=== PATIENT | male | born 2005 | race Hispanic/Latino ===

== ENCOUNTER 2025-08-02 16:27 | Emergency (ER) | payer OTHER ==
[~2025-08-02] VITALS: Ht 172.7 cm; Wt 104.3 kg
[2025-08-02] MEDS ORDERED: DIPH50CA38 PO (16:50)
--- NOTE | 2025-08-02 16:51 | ERN ---
ED Note History of Present Illness Stated Complaint: BEE STING Chief Complaint: Insect Bite Time Seen by MD: 16:30 Time Seen by Midlevel: 16:30 Dictation: The patient is a 19-year-old male with no past medical history who presents to the emergency department with complaints of bee sting to the left lower leg onset prior to arrival. Patient denies any shortness of breath, face swelling or any other complaint. Allergies: Coded Allergies: No Known Drug Allergies (Unverified Allergy, Unknown, 08/02/25) Past Medical History Past Medical History: No Pertinent History Surgical History: None RN Note Reviewed/Agreed w/PFSH: Yes Review of System Dictation Constitutional: Negative for fever,chills, and weight loss Eyes: Negative for injury, pain,redness, and discharge ENT: Negative for injury,pain or swelling Cardiovascular: Negative for chest pain, palpitations, and edema Respiratory: Negative for shortness of breath, cough, and wheezing, Abdomen/GI: Negative for abdominal pain, nausea, vomiting, diarrhea, and constipation Back: Negative for injury and pain : Negative for injury, bleeding and discharge MS/Extremity: Negative for injury and deformity Skin: Negative for rash, and discoloration positive for bee sting Neuro: Negative for headache, weakness, numbness, tingling, and seizure Psych: Negative for suicide ideation, homicidal ideation, and hallucinations Initial Vital Sign VS Vital Signs Date Time Temp Pulse Resp B/P (MAP) Pulse Ox O2 Delivery O2 Flow Rate FiO2 08/02/25 16:30 98.1 74 18 154/81 99 Physical Exam Dictation Vital Signs reviewed General Appearance: Alert, oriented x 3, no acute distress, well developed, nourished. Head and Face: non-traumatic. Eyes: PERRL, pink conjunctivas, eyelid no trauma, anterior chamber with arcus senilis. Ears: Pinnas intact and no signs of trauma or erythema ear canals clear and no discharge TM no erythema Nose: No discharge, no bleeding. Oropharynx: Mouth normal, tongue pink. Tongue normal in size pharynx clear,no erythema, tonsils no exudates, no abscesses noted, mucous membrane moist Neck: Supple, non-tender, no thyromegaly, no masses, no JVD, no bruits Breast:Deferred Chest:No tenderness, no crepitus, no paradoxical movement, no retractions Lungs:Clear, well-ventilated, symmetric, no rales, no wheezing, no rhonchi, no stridor, good breath sounds bilaterally Heart: Regular rate, regular rhythm, no murmur, no gallops Vascular: no peripheral edema, Abdomen: Soft, positive bowel sounds, nondistended, no guarding, nontender, no rebound, no masses no hepatomegaly, no splenomegaly, no Giles's s ign, no hernias. Rectal: Deferred Genital: Deferred Neurological: Normal speech, motor function intact, sensory function intact Musculoskeletal: Neck nontender, full range of motion, back nontender, full range of motion, Extremities: nontender, full range of motion Skin: Color pink, dry, no turgor, no rash, no lacerations, no abrasions, no contusions.small erythemic we wheal to left lower leg about 1cm in diameter, no stinger identified Lymphatic: Deferred Results (Laboratory/Radiology) Labs Reviewed?: Yes ED Course ED Course Orders Procedure Category Date Status Time Tetanus,Diphtheria PHA 08/02/25 In Process Tox [Adult] (Diphther 17:00 Famotidine 20mg Tab PHA 08/02/25 In Process (Pepcid 20mg Tab) 17:00 Dexamethasone 4mg/Ml PHA 08/02/25 In Process 1ml Vial (Dexametha 17:00 Current Medications Medications (Trade) Dose Ordered Sig/Karen Route PRN Reason Start Time Stop Time Status Last Admin Dose Admin Dexamethasone Sodium Phosphate (dexaMETHasone 4MG/ML 1ML VIAL) 6 mg ONCE ONCE IM 08/02/25 17:00 08/02/25 17:01 Famotidine (Pepcid 20mg Tab) 20 mg ONCE ONCE PO 08/02/25 17:00 08/02/25 17:01 Tetanus/ Diphtheria Toxoids Adsorbed (DiphthERIA-teTANUS TOXOID [ADULT]/ DECAVAC) 0.5 ml ONCE ONCE IM 08/02/25 17:00 08/02/25 17:01 Vital Signs Date Time Temp Pulse Resp B/P (MAP) Pulse Ox O2 Delivery O2 Flow Rate FiO2 08/02/25 16:30 98.1 74 18 154/81 99 Medical Decision Making MDM The patient is a 19-year-old male with no past medical history who presents to the emergency department with complaints of bee sting to the left lower leg onset prior to arrival. Patient denies any shortness of breath, face swelling or any other complaint. Patient with a a local small erythemic we wheal to left lower leg about 1cm in diameter, no stinger identified. Patient with no facial swelling clear lung sounds. Patient treated with Pepcid and stairs but refused Benadryl because he has to drive. Patient reports he will take it when he gets home. Patient otherwise in no acute distress, nontoxic appearance. Patient will be discharged to follow up with PCP. Differential diagnosis: Allergic reaction, bee sting, anaphylactic Need for hospitalization: Patient does not meet criteria for hospitalization. There are no social concerns with this patient. DX & DISP Disposition: Discharge Departure Impression: Primary Impression: Bee sting Condition: Stable Scripts Diphenhydramine HCl (Benadryl) 50 Mg Cap 50 MG PO Q6H for itching/rash, #20 CAP 0 Refills Prov: GOPAL CHILDERS 08/02/25 Additional Instructions: You may take Benadryl as needed for itching or swelling. Follow up with your primary doctor in 1-2 days. If you develop severe facial swelling, tongue swelling or if anything worsens please return to ER. FOLLOW-UP WITH PRIMARY CARE PROVIDER IN 1 TO 2 DAYS. TAKE MEDICATIONS DIRECTED HERE IN THE EMERGENCY ROOM. OKAY TO CONTINUE HOME MEDICATIONS UNLESS OTHERWISE DISCUSSED DURING YOUR VISIT IN THE EMERGENCY ROOM TODAY. RETURN TO YOUR NEAREST EMERGENCY ROOM IF SYMPTOMS WORSEN OR IF THERE IS NO IMPROVEMENT. CALL 911 IF YOU NEED IMMEDIATE ASSISTANCE. TAKE TYLENOL [id number] NEEDED AND IF NO CONTRAINDICATIONS ARE PRESENT. INCREASE ORAL HYDRATION. A WOUND CULTURE OR URINE CULTURE WAS ORDERED HERE IN THE EMERGENCY ROOM DEPARTMENT PLEASE FOLLOW-UP WITH PRIMARY CARE PROVIDER AND ADVISE THEM TO GET REPEAT PORTS FROM OUR FACILITY. IF YOU HAD ANY JANET WRAP/SPLINTS THAT WERE APPLIED HERE, PLEASE DO NOT REMOVE THEM UNTIL YOU SEE YOUR PRIMARY CARE OR SPECIALTY. Time of Disposition: 16:49 I have reviewed the case, and I agree with, Diagnosis and Plan GOPAL CHILDERS Aug 02, 2025 16:51
[2025-08-02] MEDS: FAMOTIDINE 20MG TAB PO ONE (17:05)
[2025-08-02 17:29] VITALS: BP 134/87; PULSE 87; RESP 18; TEMP 98; O2SAT 99
== END 2025-08-02 17:30 | disposition home or self-care (01) ==
LOC: EDH 16:27
DX: T63.441A Toxic effect of venom of bees, accidental (unintentional), initial encounter (principal); Y92.89 Other specified places as the place of occurrence of the external cause
CPT/HCPCS: 99284; 90714; 96372; 90471; J1100